=== PATIENT | female | born 1995 | race Caucasian/White ===

== ENCOUNTER 2025-10-05 00:04 | Emergency (ER) | payer OTHER, MEDICAID ==
[~2025-10-05] VITALS: Ht 160 cm; Wt 59.0 kg
[2025-10-05 00:06] VITALS: O2SAT 99
[2025-10-05] MEDS ORDERED: TETANUS, DIPHTHERIA, PERTUSSIS VAC/PF 0.5ML (>10YR OLD) IM ONE (00:30)
[2025-10-05 01:10] LABS: HCG SCREEN NEGATIVE
[2025-10-05 01:38] VITALS: TEMP 97.7
[2025-10-05] MEDS: ACETAMINOPHEN 325MG TABLET PO ONE (01:38)
[2025-10-05 01:39] VITALS: BP 134/92; PULSE 68; RESP 17; O2SAT 97
[2025-10-05] MEDS: TETANUS, DIPHTHERIA, PERTUSSIS VAC/PF 0.5ML (>10YR OLD) IM ONE (02:17)
[2025-10-05] MEDS ORDERED: BACL-141 MT (02:48)
[2025-10-05] MEDS ORDERED: ACET-2708 MT (02:48)
== END 2025-10-05 03:10 | disposition home or self-care (01) ==
LOC: ER 00:33
DX: S01.01XA Laceration without foreign body of scalp, initial encounter (principal); S80.01XA Contusion of right knee, initial encounter; S80.02XA Contusion of left knee, initial encounter; V89.2XXA Person injured in unspecified motor-vehicle accident, traffic, initial encounter; Y92.410 Unspecified street and highway as the place of occurrence of the external cause; Y93.89 Activity, other specified; Y99.8 Other external cause status; R51.9 Headache, unspecified
CPT/HCPCS: 84703; 73560; 70450; 70486; 90715; 12001; 90471; 99285; Z7610

== ENCOUNTER 2025-10-08 15:34 | Emergency (ER) | payer MEDICAID ==
[~2025-10-08] VITALS: Ht 157.5 cm; Wt 69.0 kg
[~2025-10-08 15:34] MED LIST: ACET-2708 MT; BACL-141 MT
[2025-10-08 15:38] VITALS: BP 109/70; TEMP 36.7; O2SAT 98
[2025-10-08 15:39] VITALS: PULSE 100; RESP 16; O2SAT 98
== END 2025-10-08 17:27 | disposition home or self-care (01) ==
LOC: ER 15:34
DX: S01.91XD Laceration without foreign body of unspecified part of head, subsequent encounter (principal); X58.XXXD Exposure to other specified factors, subsequent encounter
CPT/HCPCS: 99282